=== PATIENT | female | born 1990 | race Caucasian/White ===

== ENCOUNTER 2017-08-31 07:35 | Day surgery (SDC) | payer OTHER ==
[~2017-08-31] VITALS: Ht 160 cm; Wt 86.2 kg
[~2017-08-31 07:35] MED LIST: ALBU90OI INH; AZIT250 PO; BP MED; CHOL10002; CLIN300 PO; CYCL10; GLYDO11 ML; HYDACE5 PO; IBUP600 PO; IBUP800 PO; IRON150C PO; LABE200 PO; LUTERA BIRTH CONTROL; ONDA4; OXYACE5T PO; Omeprazole20 M1; PENVK500 PO; PNV 29-1 TABLE1 EACH PO; PRED20 PO; PRENATAL TABLE1 EAC1 PO; PROM25 PO; Pepcid40 MG PO; RANI150; RXCODACET PO; SERT25; TRAM50 PO; Zofran Odt4 MG SL; [UNRECOGNIZED DRUG - REMARK]
== END 2017-08-31 09:41 | disposition home or self-care (01) ==
LOC: ORSCSDS 07:35
PROVIDERS: Internal Medicine Gastroenterology
PROC: 0DB68ZX Excision of Stomach, Via Natural or Artificial Opening Endoscopic, Diagnostic (ICD-10-PCS; principal; 2017-08-31 08:45)
DX: R11.2 Nausea with vomiting, unspecified (principal); I10 Essential (primary) hypertension; R10.9 Unspecified abdominal pain; K29.80 Duodenitis without bleeding; K29.70 Gastritis, unspecified, without bleeding; F17.210 Nicotine dependence, cigarettes, uncomplicated; Z79.899 Other long term (current) drug therapy
CPT/HCPCS: 88305; 88342; J2250; J7120

== ENCOUNTER → 2018-09-19 | Outpatient (CLI) | payer OTHER | END | disposition home or self-care (01) | LOC: LAB EV 11:13 → LAB SHORT 11:13 | DX: A49.02 Methicillin resistant Staphylococcus aureus infection, unspecified site (principal) | CPT/HCPCS: 87081 ==

== ENCOUNTER 2018-09-21 16:16 | Emergency (ER) | payer OTHER ==
[~2018-09-21] VITALS: Ht 162.6 cm; Wt 73.5 kg
== END 2018-09-21 16:43 | disposition home or self-care (01) ==
LOC: ER 16:16
DX: M27.2 Inflammatory conditions of jaws (principal)
CPT/HCPCS: 10060; 99282-25

== ENCOUNTER → 2018-11-17 | Outpatient (CLI) | payer OTHER | END | disposition home or self-care (01) | LOC: LAB EV 14:20 → LAB SHORT 14:20 | DX: N39.0 Urinary tract infection, site not specified (principal) | CPT/HCPCS: 87077; 87086; 87186 ==

== ENCOUNTER → 2019-02-10 | Outpatient (CLI) | payer OTHER | END | disposition home or self-care (01) | LOC: LAB SHORT 14:06 → LAB EV 14:06 | DX: A49.02 Methicillin resistant Staphylococcus aureus infection, unspecified site (principal) | CPT/HCPCS: 87070; 87205 ==

== ENCOUNTER → 2021-05-21 | Outpatient (CLI) | payer OTHER ==
[2021-05-22 11:01] LABS: Candida species (DNA Probe) Negative (NEGATIVE); G. vaginalis (DNA Probe) Positive (NEGATIVE); T. vaginalis (DNA Probe) Negative (NEGATIVE)
== END ==
LOC: LAB 10:40 → LAB SHORT 10:40
PROVIDERS: Family Medicine
DX: N76.0 Acute vaginitis (principal); Z01.419 Encounter for gynecological examination (general) (routine) without abnormal findings
CPT/HCPCS: 87480; 87510; 87660; G0123